=== PATIENT | male | born 1950 | race Caucasian/White ===

== ENCOUNTER 2024-06-16 18:31 | Inpatient (IN) | payer OTHER, BC ==
[2024-06-16] MEDS ORDERED: ONDANSETRON 4 MG/2 ML VIAL ONE (19:38)
[2024-06-16] MEDS ORDERED: NA CHLORIDE 0.9% 1,000 ML ONE (19:38)
[2024-06-16 19:41] LABS: Absolute Lymphocytes (CBC) 0.2 K/uL (0.7-4.9); Basophils % 0.5 % (0-1.3); Eosinophils % 0.9 % (0-4.4); Hematocrit 42.4 % (39.6-49.0); Hemoglobin 14.5 g/dL (13.6-17.9); Lymphocytes % 5.9 % (15.3-44.8); MCH 32.3 pg (27.0-35.0); MCHC 34.2 g/dL (32.0-36.0); MCV 94.4 fL (80-100); MPV 7.3 fL (7.6-11.3); Monocytes % 0.5 % (3.3-12.3); Neutrophils % 92.2 % (41.7-73.7); Nucleated Red Blood Cells % 0.1 % (0-0); Platelets 193 thou/uL (152-406); RBC Red Blood Cell Count 4.49 M/uL (4.33-5.43)
--- NOTE | 2024-06-16 19:58 | RAD REPORT ---
EXAM: Chest Single View HISTORY: COUGH COMPARISON: None. FINDINGS: LUNGS/PLEURA: Bronchial wall thickening and mild linear opacities in the lung bases. MEDIASTINUM: The mediastinal silhouette is within normal limits. CARDIAC: The cardiac silhouette is within normal limits. UPPER ABDOMEN: No significant abnormality. BONES: No acute abnormality. LINES/TUBES/OTHER: N/A IMPRESSION: Prominence of the interstitial markings in the lung bases could reflect mild infection or inflammatio n. No edema or consolidation.
[2024-06-16 20:09] LABS: Albumin 3.1 g/dL (3.4-5.0); Albumin/Globulin Ratio 0.8 (1.1-1.8); Anion Gap 11.2 mEq/L (5.0-15.0); Globulin 3.9 g/dL (2.3-3.5); Potassium 3.2 mEq/L (3.5-5.1)
[2024-06-16 20:17] LABS: Specific Gravity 1.011 (1.005-1.030); Urine Bilirubin NEGATIVE (Negative); Urine Blood Negative (Negative); Urine Clarity Clear (Clear); Urine Color Colorless (Yellow); Urine Glucose NEGATIVE (Negative); Urine Ketones NEGATIVE (Negative); Urine Microscopic Reflex YN NO UMIC; Urine Nitrite NEGATIVE (Negative); Urine Protein NEGATIVE (Negative); Urine Urobilinogen Normal (Normal)
[2024-06-16 20:32] LABS: SARS-CoV-2 Antigen CONTROL BLUE LINE VIS/BG OK; SARS-CoV-2 Antigen Rapid Res Negative (Negative)
--- NOTE | 2024-06-16 21:04 | ER ---
Nurse's Notes [facility] Name: Ryland Honeycutt Age: 73 yrs Sex: Male : 1950 Arrival Date: 06/16/2024 Time: 18:31 Bed 15 Private MD: Diagnosis: Pneumonia, unspecified organism Presentation: 06/16 18:38 Chief complaint: Patient states: about 45 min ago, all of a sudden teeth started to tm6 chatter and body started to shake. Coronavirus screen: Client denies travel out of the [place] in the last 14 days. Ebola Screen: Patient negative for fever greater than or equal to 101.5 degrees Fahrenheit, and additional compatible Ebola Virus Disease symptoms Patient denies exposure to infectious person. Patient denies travel to an Ebola-affected area in the 21 days before illness onset. No symptoms or risks identified at this time. 18:38 Method Of Arrival: Ambulatory tm6 18:38 Onset of symptoms was June 16, 2024 at 18:00. tm6 18:42 Risk Assessment: Do you want to hurt yourself or someone else? Patient reports no tm6 desire to harm self or others. 18:42 Acuity: MODESTO 3 tm6 18:44 Initial Sepsis Screen: Does the patient meet any 2 criteria? HR > 90 bpm. Does the tm6 patient have a suspected source of infection? No. Patient's initial sepsis screen is negative. Triage Assessment: 18:38 General: Appears in no apparent distress. Behavior is calm, cooperative. EENT: No signs tm6 and/or symptoms were reported regarding the EENT system. Cardiovascular: Patient's skin is warm and dry. Respiratory:. 18:40 Pain: Denies pain. Neuro: Level of Consciousness is awake, alert, obeys commands, tm6 Oriented to person, place, time, situation. Respiratory: Reports cough that is Airway is patent Respiratory effort is even, unlabored, Respiratory pattern is regular, symmetrical. GI: No signs and/or symptoms were reported involving the gastrointestinal system. Abdomen is round non-distended. GI: Reports nausea. : No signs and/or symptoms were reported regarding the genitourinary system. Derm: No signs and/or symptoms reported regarding the dermatologic system. Musculoskeletal:. Musculoskeletal: Reports body shakes. Historical: - Allergies: 18:41 No Known Allergies; tm6 - PMHx: 18:41 Hypercholesterolemia; Hypertensive disorder; Gastroesophageal reflux disease; tm6 - PSHx: 18:41 prostate removed; tm6 - Immunization history:: Flu vaccine is up to date. - Infectious Disease History:: Denies. - Social history:: Smoking status: Patient/guardian denies using tobacco, the patient reports quitting approximately 2 years ago. Screenin:00 [facility] ED Fall Risk Assessment (Adult) History of falling in the last 3 months, rg5 including since admission No falls in past 3 months (0 pts) Confusion or Disorientation No (0 pts) Intoxicated or Sedated No (0 pts) Impaired Gait No (0 pts) Mobility Assist Device Used No (0 pt) Altered Elimination No (0 pt) Score/Fall Risk Level 0 - 2 = Low Risk Oriented to surroundings, Maintained a safe environment, Hourly rounding (assess needs \T\ fall precautionary measures) done. 19:00 Abuse screen: Denies threats or abuse. Nutritional screening: No deficits noted. rg5 Tuberculosis screening: No symptoms or risk factors identified. Vital Signs: 18:39 Temp 99.2(O); tm6 18:44 BP 130 / 80; Pulse 116; Resp 20; Pulse Ox 94% on R/A; MAP 93 mmHg; Weight 99.79 kg; tm6 Height 6 ft. 0 in. ; Pain 0/10; 19:05 BP 153 / 84; Pulse 106; Resp 19; Temp 98.8(O); Pulse Ox 97% on R/A; Pain 0/10; rg5 20:00 BP 143 / 89; Pulse 106; Resp 17; Pulse Ox 95% on R/A; Pain 0/10; rg5 22:00 BP 140 / 94; Pulse 110; Resp 88; Pulse Ox 94% on R/A; rg5 23:00 BP 131 / 97; Pulse 117; Resp 18; Pulse Ox 94% on R/A; Pain 0/10; rg5 1230 00:30 BP 134 / 89; Pulse 103; Resp 18; Temp 98.3(O); Pulse Ox 95% on 3 lpm NC; rg5 06/16 18:44 Body Mass Index 29.84 (99.79 kg, 182.88 cm) tm6 18:44 Pain Scale: Adult tm6 19:05 Pain Scale: Adult rg5 20:00 Pain Scale: Adult rg5 23:00 Pain Scale: Adult rg5 ED Course: 06/16 18:34 Patient arrived in ED. im 18:42 Chasidy Meza FNP-C is [facility]. kb 18:42 Jeffy Still MD is Attending Physician. kb 18:42 Arm band placed on left wrist. tm6 18:43 Triage completed. tm6 19:00 Patient has correct armband on for positive identification. Bed in low position. Call rg5 light in reach. Side rails up X 1. Door closed. Noise minimized. Warm blanket given. 19:00 No provider procedures requiring assistance completed. rg5 19:13 Genaro Guajardo, BIBI is Primary Nurse. rg5 19:15 Inserted saline lock: 20 gauge in right antecubital area, using aseptic technique. rg5 Blood collected. Flushed with 10 mL NS. 19:44 Chest Single View XRAY In Process Unspecified. EDMS 21:04 Florentino Vela MD is Hospitalizing Provider. kb 22:26 Inserted saline lock: 22 gauge in left antecubital area, using aseptic technique. Blood af3 collected. Flushed with 10 mL NS. 22:31 EKG done, by radioisotope technician. af3 06/17 02:30 Patient admitted, IV remains in place. rg5 02:31 Provided Education on: need for admit. rg5 Administered Medications: 06/16 19:30 Drug: Ondansetron IVP 4 mg IVP once; over 2 minutes Route: IVP; Site: right antecubital;rg5 20:00 Follow up: Response: No adverse reaction rg5 19:30 Drug: NS 0.9% IV 1000 ml IV at 1 bolus Per protocol; to be given as a bolus over 60 rg5 minutes Route: IV; Rate: 1 bolus; Site: right antecubital; 20:30 Follow up: IV Status: Completed infusion; IV Intake: 1000ml rg5 22:50 Drug: Zithromax IVPB 500 mg IVPB once over 1 hrs; mix in 250 mL NS Route: IVPB; Infused rg5 Over: 1 hrs; Site: right hand; 06/17 00:00 Follow up: IV Status: Completed infusion; IV Intake: 250ml rg5 06/16 22:50 Drug: Aspirin PO 325 mg PO once Route: PO; rg5 23:00 Follow up: Response: No adverse reaction rg5 22:51 Drug: Rocephin IV 1 grams IV at calculated rate once; Given slow IV push per pharmacy rg5 instructions Route: IV; Rate: calculated rate; Site: right hand; 23:00 Follow up: IV Status: Completed infusion rg5 23:25 Drug: Potassium Chloride PO 40 mEq PO once Route: PO; rg5 06/17 00:00 Follow up: Response: No adverse reaction rg5 Medication: 02:31 VIS not applicable for this client. rg5 Intake: 06/16 20:30 IV: 1000ml; Total: 1000ml. rg5 06/17 00:00 IV: 250ml; Total: 1250ml. rg5 Outcome: 06/16 19:00 Admitted to Med/surg accompanied by nurse, via wheelchair, rg5 Condition: stable Instructed on the need for admit, 21:04 Decision to Hospitalize by Provider. kb 06/17 03:17 Patient left the ED. rg5 Signatures: Dispatcher [employer] EDMS Chasidy Meza, LIC MASONRY SUPERVISOR-Jody Melendrez Tawney RN RN tm6 Genaro Guajardo RN RN rg5 Micheline Atkins3 Corrections: (The following items were deleted from the chart) 06/16 18:40 18:38 Chief complaint: Patient states: about 45 min ago, all of a sudden teeth started tm6 to chatter and body started to shake tm6
--- NOTE | 2024-06-16 21:04 | EDPHYS ---
Physician Documentation [facility] Name: Ryland Honeycutt Age: 73 yrs Sex: Male : 1950 Arrival Date: 06/16/2024 Time: 18:31 Bed 15 Private MD: ED Physician Jeffy Still HPI: 06/16 23:16 This 73 yrs old Male presents to ER via Ambulatory with complaints of shakes. 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 States kb "my whole body started shaking and hasn't stopped. I think I'm having a seizure." Pt states he was sitting, watching a movie and having a cocktail when symptoms started. Denies any other symptoms. Pt started coughing in triage and vomited x1. Pt states he hadn't been coughing prior to triage. Historical: - Allergies: 18:41 No Known Allergies; tm6 - PMHx: 18:41 Hypercholesterolemia; Hypertensive disorder; Gastroesophageal reflux disease; tm6 - PSHx: 18:41 prostate removed; tm6 - Immunization history:: Flu vaccine is up to date. - Infectious Disease History:: Denies. - Social history:: Smoking status: Patient/guardian denies using tobacco, the patient reports quitting approximately 2 years ago. ROS: 23:16 Constitutional: As per HPI kb Exam: 22:44 Constitutional: This is a well developed, well nourished patient who is awake, alert, kb and in no acute distress. Head/Face: Normocephalic, atraumatic. ENT: Moist Mucous membranes Cardiovascular: Regular rate Respiratory: Respirations even and unlabored. No increased work of breathing. Talking in full sentences Abdomen/GI: Soft, non-tender. No distention Skin: Warm, dry with normal turgor. Normal color. MS/ Extremity: Pulses equal, no cyanosis. Neurovascular intact. Full, normal range of motion. Neuro: Awake and alert, GCS 15, oriented to person, place, time, and situation. 22:44 ECG was reviewed by the Attending Physician. Vital Signs: 18:39 Temp 99.2(O); tm6 18:44 BP 130 / 80; Pulse 116; Resp 20; Pulse Ox 94% on R/A; MAP 93 mmHg; Weight 99.79 kg; tm6 Height 6 ft. 0 in. ; Pain 0/10; 19:05 BP 153 / 84; Pulse 106; Resp 19; Temp 98.8(O); Pulse Ox 97% on R/A; Pain 0/10; rg5 20:00 BP 143 / 89; Pulse 106; Resp 17; Pulse Ox 95% on R/A; Pain 0/10; rg5 22:00 BP 140 / 94; Pulse 110; Resp 88; Pulse Ox 94% on R/A; rg5 23:00 BP 131 / 97; Pulse 117; Resp 18; Pulse Ox 94% on R/A; Pain 0/10; rg5 12 00:30 BP 134 / 89; Pulse 103; Resp 18; Temp 98.3(O); Pulse Ox 95% on 3 lpm NC; rg5 06/16 18:44 Body Mass Index 29.84 (99.79 kg, 182.88 cm) tm6 18:44 Pain Scale: Adult tm6 19:05 Pain Scale: Adult rg5 20:00 Pain Scale: Adult rg5 23:00 Pain Scale: Adult rg5 MDM: 06/16 18:42 Medical Screening Exam initiated kb 21:03 Differential diagnosis: flu, covid, uri, pneumonia. Data reviewed: vital signs, nurses kb notes. Consideration of Admission/Observation Patient was admitted/placed on observation. Escalation of care including admission/observation considered. Management of patient was discussed with the following: Hospitalist: Dr Vela accepts pt for admission. Historians other than the Patient: Spouse/Significant Other: . Counseling: I had a detailed discussion with the patient and/or guardian regarding the historical points, exam findings, and any diagnostic results supporting the discharge/admit diagnosis, lab results, radiology results, the need for further work-up and treatment in the hospital. 06/16 18:42 Order name: CBC with Diff; Complete Time: 21:37 kb 06/16 18:42 Order name: CMP; Complete Time: 20:10 kb 06/16 18:42 Order name: Lipase; Complete Time: 20:10 kb 06/16 18:42 Order name: Urinalysis w/ reflexes kb 06/16 18:42 Order name: Flu; Complete Time: 20:33 kb 06/16 18:42 Order name: SARS-COV-2 Antigen Rapid; Complete Time: 20:33 kb 06/16 20:56 Order name: Blood Culture Adult (2) kb 06/16 20:56 Order name: Lactate w/ 2H reflex if indic.; Complete Time: 23:00 kb 06/16 20:56 Order name: Protime (+inr); Complete Time: 22:44 kb 06/16 20:56 Order name: Ptt, Activated; Complete Time: 22:44 kb 06/16 21:31 Order name: CBC Smear Scan; Complete Time: 21:37 EDMS 06/17 02:51 Order name: CBC with Automated Diff EDMS 06/17 02:52 Order name: Comprehensive Metabolic Panel EDMS 06/16 18:42 Order name: Chest Single View XRAY; Complete Time: 20:01 kb 06/17 02:54 Order name: Chest Pa And Lat (2 Views) EDMS 06/16 18:42 Order name: EKG; Complete Time: 18:43 kb 06/16 18:42 Order name: IV Saline Lock; Complete Time: 19:56 kb 06/16 18:42 Order name: Labs collected and sent; Complete Time: 19:56 kb 06/16 18:42 Order name: EKG - Nurse/Tech; Complete Time: 22:31 kb 06/16 21:03 Order name: Misc. Order: pt requesting orange juice; Complete Time: 21:54 kb EC:44 Rate is 112 beats/min. Rhythm is regular. QRS [place] is Normal. [place] interval is normal at kb 158 msec. QRS interval is normal at 92 msec. QT interval is normal at 444 msec. Administered Medications: 19:30 Drug: Ondansetron IVP 4 mg IVP once; over 2 minutes Route: IVP; Site: right antecubital;rg5 20:00 Follow up: Response: No adverse reaction rg5 19:30 Drug: NS 0.9% IV 1000 ml IV at 1 bolus Per protocol; to be given as a bolus over 60 rg5 minutes Route: IV; Rate: 1 bolus; Site: right antecubital; 20:30 Follow up: IV Status: Completed infusion; IV Intake: 1000ml rg5 22:50 Drug: Zithromax IVPB 500 mg IVPB once over 1 hrs; mix in 250 mL NS Route: IVPB; Infused rg5 Over: 1 hrs; Site: right hand; 06/17 00:00 Follow up: IV Status: Completed infusion; IV Intake: 250ml rg5 06/16 22:50 Drug: Aspirin PO 325 mg PO once Route: PO; rg5 23:00 Follow up: Response: No adverse reaction rg5 22:51 Drug: Rocephin IV 1 grams IV at calculated rate once; Given slow IV push per pharmacy rg5 instructions Route: IV; Rate: calculated rate; Site: right hand; 23:00 Follow up: IV Status: Completed infusion rg5 23:25 Drug: Potassium Chloride PO 40 mEq PO once Route: PO; rg5 06/17 00:00 Follow up: Response: No adverse reaction rg5 Disposition: 07:07 Co-signature as Attending Physician, Jeffy Still MD I reviewed the patient's care rn provided by the Advanced Practice Provider and agree with the diagnosis and treatment plan. Disposition Summary: 06/16/24 21:04 Hospitalization Ordered Notes: Hospitalization Status: Observation kb Provider: Florentino Vela Location: Telemetry/MedSurg (observation) kb Condition: Stable kb Problem: new kb Symptoms: are unchanged kb Bed/Room Type: Standard Room Assignment: 215(06/17/24 01:20) [facility] Diagnosis - Pneumonia, unspecified organism kb Forms: - Medication Reconciliation Form kb - SBAR form kb - Leadership Thank You Letter kb Signatures: Dispatcher [employer] Chasidy Lopez, HOTBED TRANSFER OPERATOR-C HOTBED TRANSFER OPERATOR-Ckb Jeffy Still MD MD rn Forrester, Kelsey Maroul f Fabiola Armendariz RN RN tm6 Genaro Guajardo RN RN rg5 Corrections: (The following items were deleted from the chart) 01:20 06/16 21:04 kb f
[2024-06-16 21:31] LABS: Blood Morphology Comment NOT SEEN (NOT SEEN); Platelet Estimate ADEQ; White Blood Cell Scan OK (OK)
[2024-06-16] MEDS ORDERED: NA CHLORIDE 0.9% 250 ML ONE (22:24)
[2024-06-16] MEDS ORDERED: CEFTRIAXONE 1000 MG/VIAL ONE (22:24)
[2024-06-16] MEDS ORDERED: ASPIRIN 325 MG TAB ONE (22:24)
[2024-06-16] MEDS ORDERED: AZITHROMYCIN 500 MG INJ IVPB ONE (22:24)
[2024-06-16 22:39] LABS: PT Prothrombin Time 12.2 SECONDS (9.4-12.5); PTT, Activated Partial Thromb 24.9 SECONDS (24.3-36.9); Protime INR 1.09
[2024-06-16] MEDS ORDERED: POTASSIUM CL SA 10 MEQ TAB PO ONE (23:20)
--- NOTE | 2024-06-17 02:57 | P.HP ---
Certification for Inpatient Patient admitted to: Observation With expected LOS: <2 Midnights Practitioner: I am a practitioner with admitting privileges, knowledge of patient current condition, hospital course, and medical plan of care. Services: Services provided to patient in accordance with Admission requirements found in Title 42 Section 412.3 of the Code of Federal Regulations Patient History Date of Service: 06/17/24 Reason for admission: Possible pneumonia History of Present Illness: Patient is 73 years of age was watching a movie on TV suddenly started having rigors shivering attack denies any fever chills cough sputum or hemoptysis ended up here in the emergency room diagnosis of possible pneumonia patient is a former smoker quit 2 years ago denies any shortness of breath or chest pain Allergies No Known Allergies Allergy (Unverified 06/17/24 02:51) - Past Medical/Surgical History -: hyperlipidemia -: BPH -: GERD -: Prostatectomy - Social History Smoking Status: Former smoker Review of Systems 10-point ROS is otherwise unremarkable Physical Examination - Vital Signs Temperature: 99.2 F Blood Pressure: 130/80 Pulse: 116 Respirations: 20 Pulse Ox (%): 94 - Physical Exam General: Alert, In no apparent distress, Oriented x3, Cachectic Neck: Supple Respiratory: Clear to auscultation bilaterally, Friction rub Cardiovascular: Regular rate/rhythm, Normal S1 S2 Gastrointestinal: Normal bowel sounds, Soft and benign Musculoskeletal: No clubbing, No swelling Integumentary: No rashes, No breakdown Neurological: Normal speech, Normal strength at 5/5 x4 extr - Studies Laboratory Data (last 24 hrs) 06/16/24 06/16/24 06/16/24 22:18 19:30 19:30 WBC 3.30 L Hgb 14.5 Hct 42.4 Plt Count 193 PT 12.2 INR 1.09 APTT 24.9 Sodium 140 Potassium 3.2 L BUN 17 Creatinine 1.19 Glucose 100 Total Bilirubin 1.0 AST 28 ALT 23 Alkaline Phosphatase 76 Lipase 52 Microbiology Data (last 24 hrs): 06/16/24 19:41 Nasopharnyx Influenza Type A Antigen Screen - Final 06/16/24 19:41 Nasopharnyx Influenza Type B Antigen Screen - Final Assessment and Plan - Problems (Diagnosis) (1) Rigors Current Visit: Yes Status: Acute Plan: Patient is 73 years of age admitted with acute onset of possible rigors with shivering spells denies any pulmonary complaints chest x-ray shows some prominence of interstitial markings in the lower lobes possible pneumonia labs reviewed unremarkable white count is a bit lower than normal patient has mild hypokalemia not on any diuretics at home former smoker quit 2 years ago plan to admit to the hospital for observation will repeat chest x-ray start patient on levofloxacin cultures have been ordered currently vital signs oxygenation stable possible discharge tomorrow Discharge Plan: Home Plan to discharge in: 24 Hours - Advance Directives Does patient have a Living Will: Yes Does patient have a Durable POA for Healthcare: Yes - Code Status/Comfort Care Code Status Assessed: Yes Code Status: Full Code
[2024-06-17] MEDS ORDERED: Levofloxacin 750mg IV 750 MG/150 ML BAG IV SCH (03:00)
[2024-06-17 03:36] VITALS: BMI 29.8
[2024-06-17 06:50] LABS: Absolute Lymphocytes (CBC) 0.3 K/uL (0.7-4.9); Absolute Monocytes 0.3 K/uL (0.1-1.3); Absolute Neutrophil 11.3 K/uL (1.8-8.0); Basophils % 0.4 % (0-1.3); Eosinophils % 0.4 % (0-4.4); Hematocrit 40.3 % (39.6-49.0); Hemoglobin 13.5 g/dL (13.6-17.9); Lymphocytes % 2.4 % (15.3-44.8); MCH 31.6 pg (27.0-35.0); MCHC 33.5 g/dL (32.0-36.0); MCV 94.3 fL (80-100); MPV 7.8 fL (7.6-11.3); Monocytes % 2.5 % (3.3-12.3); Neutrophils % 94.3 % (41.7-73.7); Platelets 186 thou/uL (152-406); RBC Red Blood Cell Count 4.27 M/uL (4.33-5.43); Red Cell Distribution Width 16.2 % (12.1-15.2)
[2024-06-17 07:13] LABS: Albumin 2.8 g/dL (3.4-5.0); Albumin/Globulin Ratio 0.8 (1.1-1.8); Anion Gap 10.9 mEq/L (5.0-15.0); Bilirubin Total 0.7 mg/dL (0.2-1.0); Globulin 3.7 g/dL (2.3-3.5); Potassium 3.9 mEq/L (3.5-5.1); Protein, Total 6.5 g/dL (6.4-8.2)
--- NOTE | 2024-06-17 07:47 | RAD REPORT ---
EXAMINATION: TWO VIEW CHEST XR CLINICAL INDICATION: RO pneumonia TECHNIQUE: 2 views of the chest was performed. COMPARISON: 06/16/2024 FINDINGS: Mild linear atelectasis is present in the left lung base. Lungs otherwise clear. The heart is upper l imit of normal in size. No displaced fractures evident.
[2024-06-17] MEDS: Levofloxacin 750mg IV 750 MG/150 ML BAG IV SCH (09:05)
[2024-06-17] MEDS: ACETAMINOPHEN 325 MG TABLET PO PRN (11:01)
--- NOTE | 2024-06-17 11:09 | EKG ---
Test Date: 2024-06-16 Test Time: 22:29:27 Assistant Chief Engineer: AF MEASUREMENT RESULTS: Intervals: Rate: 112 IL: 158 QRSD: 92 QT: 326 QTc: 444 [place]: P: 59 IL: 158 QRS: 69 T: 28 INTERPRETIVE STATEMENTS: Sinus tachycardia Otherwise normal ECG No previous ECG available for comparison Electronically Signed On 06-17-24 11:08:17 AUDIO/VIDEO ENGINEER by Carlos Barakat
--- NOTE | 2024-06-17 12:40 | P.PN ---
Date of Service: 06/17/24 Patient seen and examined. Patient complaining of rigors and chills and headache. No significant fever recorded. He denies any shortness of breath He denies any chest pain or coughing. He denies any dysuria. CRP and procalcitonin significantly elevated. Plan: Broaden antibiotics-IV cefepime, vancomycin and doxycycline Follow blood cultures Trend CRP Supportive measures with antipyretics, analgesics as needed.
[2024-06-17] MEDS: VANCOMYCIN 1 GM in NA CHLORIDE 0.9% 250 ML IVPB SCH (13:00)
[2024-06-17] MEDS: VANCOMYCIN 1.75 GM in NA CHLORIDE 0.9% 500 ML IVPB SCH (13:49)
[2024-06-17] MEDS: PANTOPRAZOLE 40MG TABLET PO SCH (20:27)
[2024-06-17] MEDS: DOXYCYCLINE 100 MG in NA CHLORIDE 0.9% 100 ML IVPB SCH (20:27)
[2024-06-17] MEDS: ATORVASTATIN 80 MG TAB PO SCH (20:27)
[2024-06-17] MEDS ORDERED: HOME MED 1 EA UNK (Omeprazole [Omeprazole] 20 MG Capsule.Dr) PO SCH (21:00)
[2024-06-17] MEDS: CEFEPIME 2 GM in NA CHLORIDE 0.9% 100 ML IV SCH (21:47)
[2024-06-18 06:06] LABS: Absolute Eosinophils 0.1 K/uL (0-0.5); Absolute Lymphocytes (CBC) 0.4 K/uL (0.7-4.9); Absolute Monocytes 0.5 K/uL (0.1-1.3); Absolute Neutrophil 5.9 K/uL (1.8-8.0); Basophils % 0.4 % (0-1.3); Hematocrit 40.4 % (39.6-49.0); Hemoglobin 13.6 g/dL (13.6-17.9); Lymphocytes % 5.7 % (15.3-44.8); MCHC 33.6 g/dL (32.0-36.0); MCV 95.1 fL (80-100); Monocytes % 7.3 % (3.3-12.3); Neutrophils % 85.6 % (41.7-73.7); Nucleated Red Blood Cells % 0.1 % (0-0); Platelets 144 thou/uL (152-406); RBC Red Blood Cell Count 4.25 M/uL (4.33-5.43); Red Cell Distribution Width 16.2 % (12.1-15.2)
[2024-06-18 06:23] LABS: Anion Gap 9.7 mEq/L (5.0-15.0)
[2024-06-18 06:24] LABS: Potassium 3.7 mEq/L (3.5-5.1)
--- NOTE | 2024-06-18 08:01 | P.PN ---
Date of Service: 06/18/24 Subjective: Denies any new urinary symptoms. Reports some degree of incontinence at baseline since prostatectomy in August reports multiple episodes of bloody stool ~1 week ago - now resolved prior to admission; Denies hematuria. 100.3 temp yesterday afternoon denies any pains, no constipation. ROS: 10 point ROS as noted above, otherwise negative Physical Exam: GEN: Alert, NAD CV: Regular rate and rhythm, no edema Pulm: Nonlabored respirations on room air, clear bilaterally ABD: soft, nontender, nondistended Neuro: Normal speech, normal affect Problem List: Rigors Gram negative bacteremia; unclear source Hyperlipidemia BPH s/p prostatectomy GERD Rigors Gram negative bacteremia; unclear source on admission, presented after episode of chills, uncontrollable body shaking. Was sitting down watching a movie at the time. Denies any new urinary symptoms. Reports some incontinence at baseline since prostatectomy in August reports multiple episodes of bloody stool ~1 week ago; Denies hematuria. CXR (06/17): Mild linear atelectasis is present in the left lung base. Lungs otherwise clear. CRP/procal significantly elevated. Trend CRP, procal UA unremarkable. Blood cx (06/16): GNR in 4/ bottles Continue empiric cefepime / vanc / doxy (06/17-) 100.3 temp yesterday; leukocytosis resolved 06/[address] abdomen with contrast ordered to further evaluate. at risk for UTI, which is common cause of GNR bacteremia Hyperlipidemia BPH s/p prostatectomy confirm home meds, restart as appropriate GERD Protonix BID Code: Full Dispo: Home Pending cultures, afebrile > 24 hours will likely need at least 1 week IV antibiotic, and [place] is from [place] / [place] Time Spent Managing Pts Care (In Minutes): 55
[2024-06-18 09:14] LABS: Blood Morphology Comment NOT SEEN (NOT SEEN); Platelet Estimate ADEQ; White Blood Cell Scan OK (OK)
--- NOTE | 2024-06-18 10:24 | RAD REPORT ---
EXAMINATION: CT ABDOMEN AND PELVIS WITH CONTRAST CLINICAL INDICATION: Abdominal pain TECHNIQUE: CT abdomen and pelvis was performed, after the administration of 100 cc Isovue-300.. Sagit cassandra and coronal reconstructions were obtained. One or more of the following dose reduction techniques were used: Automated exposure control, adjustment of the mA and kV according to patient si ze, and iterative reconstruction. Unless otherwise specified, incidental findings do not require dedicated imaging follow-up. [id number]. Oral contrast was not given which limits evaluation of bowel and appendix. COMPARISON: .None FINDINGS: Several hepatic cysts. The largest 2 centimeters. Small hiatal hernia. Splenic granuloma. The pancreas and adrenal glands unremarkable. Bilateral renal cysts. Normal appendix. Prostatectomy. Mild bladder wall thickening. Small inguinal hernias containing fat. No evidence of diverticulitis. : IMPRESSION: No acute abnormality displayed
--- NOTE | 2024-06-18 19:14 | CON ---
History Of Present Illness: This is a 73-year-old male I was consulted for gram-negative maria alejandra bactere tony. The patient complains of shivering, rigors, and chills with fever, slight cough, coming into [facility] emergency room for further evaluation. The patient is a former smoker and was admitted for possibl e pneumonia. The patient denies any headache, nausea, vomiting, chest pain, abdominal pain, constipa tion, diarrhea, shortness of breath. He had his prostate removed in August and since then he has been incontinent. The patient had some bloody stools, challenged with hemorrhoids. He has been followed by urologist at [place] state. The patient denies any other problems. Feeling much better since h e has been on antibiotic. Currently, on cefepime, vancomycin, and doxycycline. Past Medical History: Hyperlipidemia, benign prostatic hypertrophy, prostatectomy in August of 2023, gastroesophageal reflux disease. Social History: Tobacco positive, alcohol negative. Family History: Noncontributory. Medications: Cefepime, vancomycin, and doxycycline. See MARs for other medications. Allergies: NO KNOWN DRUG ALLERGIES. Review of Systems: A 10-point review was performed. Physical Examination: General: This is a 73-year-old male, sitting in bed, not in any acute cardiopulmonary distress. Vital Signs: Temperature 97.5, pulse 82, respiration 18, blood pressure 90/82. HEENT: Unremarkable. Neck: Supple. Lungs: Basal crackles. Heart: S1, S2. Regular. Abdomen: Soft, nontender. Bowel sounds present. Extremities: No edema. Laboratory Data: Shows WBC 6.9, down from 12; hemoglobin 13.6; platelets are 144. Chemistry shows B UN of 14, creatinine of 1, albumin level 2.8. Procalcitonin is 37.4, down from 52.8. Assessment And Plan: Bacteremia secondary to gram-negative maria alejandra, sensitivity and specificity pending, most likely secondary to either urinary tract or GI system compromise. Recommend to continue cefepi me for 14 days. Vancomycin and doxycycline can be stopped. Leukocytosis improved. Thrombocytopenia . Moderate protein-calorie malnourishment. History of prostatectomy, hemorrhoids. Fever has subsid ed. Continue antibiotic and supportive care for 14 days. We will follow the patient as needed. Can be switched to oral once the sensitivity and specificity is identified. We will follow the patient as needed. Thank you for consult. NF/MODL Voice ID: [id number] Report ID: [id number]
[2024-06-19 05:19] LABS: Absolute Eosinophils 0.2 K/uL (0-0.5); Absolute Lymphocytes (CBC) 0.6 K/uL (0.7-4.9); Absolute Monocytes 0.9 K/uL (0.1-1.3); Absolute Neutrophil 2.7 K/uL (1.8-8.0); Basophils % 0.7 % (0-1.3); Eosinophils % 5.1 % (0-4.4); Hematocrit 39.5 % (39.6-49.0); Hemoglobin 13.3 g/dL (13.6-17.9); Lymphocytes % 13.3 % (15.3-44.8); MCH 31.8 pg (27.0-35.0); MCHC 33.6 g/dL (32.0-36.0); MCV 94.7 fL (80-100); MPV 7.8 fL (7.6-11.3); Monocytes % 19.5 % (3.3-12.3); Neutrophils % 61.4 % (41.7-73.7); Nucleated Red Blood Cells % 0.2 % (0-0); Platelets 146 thou/uL (152-406); RBC Red Blood Cell Count 4.17 M/uL (4.33-5.43); Red Cell Distribution Width 16.3 % (12.1-15.2)
[2024-06-19 06:18] LABS: Albumin 2.8 g/dL (3.4-5.0); Albumin/Globulin Ratio 0.8 (1.1-1.8); Anion Gap 8.7 mEq/L (5.0-15.0); Bilirubin Total 0.5 mg/dL (0.2-1.0); C-Reactive Protein 64.9 mg/L (<3.00); Globulin 3.7 g/dL (2.3-3.5); Magnesium 2.1 mg/dL (1.6-2.4); Potassium 3.7 mEq/L (3.5-5.1); Protein, Total 6.5 g/dL (6.4-8.2)
[2024-06-19 07:28] VITALS: O2SAT 96
[2024-06-19 08:51] LABS: Anisocytosis 1+; Atypical Lymphocytes 4 %; Band Neutrophils 2 % (0-1); Blood Morphology Comment NOTED (NOT SEEN); Differential Total Cells Count 100; Eosinophils 5 % (0-3); Lymphocytes 12 % (15-42); Monocytes 14 % (0-10); Platelet Estimate ADEQ; Platelets Clumped FEW; Segmented Neutrophils 62 % (40-80)
--- NOTE | 2024-06-19 11:35 | P.PN ---
Date of Service: 06/19/24 Subjective: ambulating around the floor without issues denies any new problems afebrile ROS: 10 point ROS as noted above, otherwise negative Physical Exam: GEN: Alert, NAD CV: Regular rate and rhythm, no edema Pulm: Nonlabored respirations on room air, clear bilaterally ABD: soft, nontender, nondistended Neuro: Normal speech, normal affect Problem List: Klebsiella Pneumoniae bacteremia; unclear source Hyperlipidemia BPH s/p prostatectomy GERD Klebsiella Pneumoniae bacteremia; unclear source on admission, presented after episode of chills, uncontrollable body shaking. Was sitting down watching a movie at the time. Denies any new urinary symptoms. Reports some incontinence at baseline since prostatectomy in August reports multiple episodes of bloody stool ~1 week ago; Denies hematuria. CXR (06/17): Mild linear atelectasis is present in the left lung base. Lungs otherwise clear. Blood cx (06/16): Klebsiella Pneumoniae IV cefepime (06/17-06/19) transitioned to IV levaquin (06/19) afebrile; leukocytosis resolved 06/18 Possible dc next 24 hours with oral abx ID consulted CT abdomen noted some mild bladder wall thickening, several hepatic cysts (largest 2cm), otherwise negative Unclear exact source. Possibly secondary to UTI vs gut translocation CRP/procal improving Hyperlipidemia BPH s/p prostatectomy confirm home meds, restart as appropriate GERD Protonix BID Code: Full Dispo: Home ~1 day pending 1 more day of IV abx Time Spent Managing Pts Care (In Minutes): 55
[2024-06-19] MEDS: Levofloxacin 750mg IV 750 MG/150 ML BAG IV SCH (12:14)
[2024-06-20 05:50] LABS: Absolute Eosinophils 0.3 K/uL (0-0.5); Absolute Lymphocytes (CBC) 0.7 K/uL (0.7-4.9); Absolute Monocytes 0.8 K/uL (0.1-1.3); Absolute Neutrophil 2.9 K/uL (1.8-8.0); Basophils % 0.5 % (0-1.3); Eosinophils % 5.5 % (0-4.4); Hematocrit 40.9 % (39.6-49.0); Hemoglobin 13.8 g/dL (13.6-17.9); Lymphocytes % 15.2 % (15.3-44.8); MCH 31.6 pg (27.0-35.0); MCHC 33.7 g/dL (32.0-36.0); MCV 93.8 fL (80-100); MPV 7.8 fL (7.6-11.3); Monocytes % 17.2 % (3.3-12.3); Neutrophils % 61.6 % (41.7-73.7); Nucleated Red Blood Cells % 0.2 % (0-0); Platelets 195 thou/uL (152-406); RBC Red Blood Cell Count 4.36 M/uL (4.33-5.43)
[2024-06-20 06:07] LABS: Anion Gap 7.5 mEq/L (5.0-15.0); C-Reactive Protein 26.1 mg/L (<3.00); Magnesium 2.2 mg/dL (1.6-2.4); Potassium 3.5 mEq/L (3.5-5.1)
--- NOTE | 2024-06-20 08:34 | P.DS ---
Admission Date: 06/18/24 Discharge Date: 06/20/24 Disposition: ROUTINE DISCHARGE Discharge Condition: GOOD Reason for Admission: Possible pneumonia Consultations: ID - Dr. Muse Brief History of Present Illness: Patient is 73 years of age was watching a movie on TV suddenly started having rigors shivering attack denies any fever chills cough sputum or hemoptysis ended up here in the emergency room diagnosis of possible pneumonia patient is a former smoker quit 2 years ago denies any shortness of breath or chest pain Hospital Course: Problem List: Klebsiella Pneumoniae bacteremia; unclear source Hyperlipidemia BPH s/p prostatectomy GERD Physician discharge instructions: Patient presented to ED after an episode of chills and rigors, found to be secondary to Klebsiella Pneumoniae bacteremia. Urine sample obtained in ED did not have any leuk esterase/nitrite/bacteruria/WBCs. Unclear exact source however suspect secondary to UTI given bladder wall thickening on CT scan and risk factors. Second possibly could be bacterial translocation -he reported 1-2 days of bloody bowel movements that he thought were secondary to hemorrhoids and resolved prior to admission. CT abdomen noted some mild bladder wall thickening, otherwise negative for any acute abnormalities. It did note benign appearing liver cysts which patient reported previously being told about them. Chest xray was negative for any acute findings. Blood cultures grew Klebsiella Pneumoniae in 4/4 bottles, only resistant to ampicillin. ID was consulted and recommended patient complete 2 weeks of antibiotics. He received empiric antibiotics initially, cefepime/vanc, and doxy briefly since unknown source. Once cultures resulted, he was switched to IV levaquin on 06/19 and continued to improve. SIRS resolved for > 48hrs. Patient was feeling better, afebrile without leukocytosis for > 48 hours and deemed stable for discharge. Discussed with ID and will discharge home with 11 more days of levaquin to complete a total of 14 days. Medications: levaquin 750mg PO daily for 11 more days. Follow up: PCP 3-5 days Please call to schedule / confirm appointments given recent prostatectomy earlier in the year, incontinence, and this infection, recommended close follow up with his Urologist as well. On admission, he had a mild leukocytosis of 12 and Cr was only mildly elevated at 1.19, with rest of blood work rather unremarkable. Inflammatory markers (CRP and procal were obtained the following day on 06/17) CRP: 76 on admission, peaked at 117, and down to 26 on day of discharge. Procalcitonin: 52 on admission, and trended down daily to 16 on day of discharge. CT abdomen/pelvis (06/18): Mild bladder wall thickening. Prostatectomy. Several hepatic cysts (largest 2cm). Small hiatal hernia. Small inguinal hernias containing fat. Bilateral renal cysts. Physical Exam: GEN: Alert, NAD CV: Regular rate and rhythm, no edema Pulm: Nonlabored respirations on room air, clear bilaterally ABD: soft, nontender, nondistended Neuro: Normal speech, normal affect Vital Signs/Physical Exam: Temp Pulse Resp BP Pulse Ox 98.3 F 75 17 110/66 96 06/20/24 04:00 06/20/24 04:00 06/20/24 04:00 06/20/24 04:00 06/20/24 04:00 Laboratory Data at Discharge: WBC 4.60 thou/uL (4.3-10.9) 06/20/24 05:25 Hgb 13.8 g/dL (13.6-17.9) 06/20/24 05:25 Hct 40.9 % (39.6-49.0) 06/20/24 05:25 Plt Count 195 thou/uL (152-406) D 06/20/24 05:25 PT 12.2 SECONDS (9.4-12.5) 06/16/24 22:18 INR 1.09 06/16/24 22:18 APTT 24.9 SECONDS (24.3-36.9) 06/16/24 22:18 Sodium 141 mEq/L (136-145) 06/20/24 05:25 Potassium 3.5 mEq/L (3.5-5.1) 06/20/24 05:25 BUN 14 mg/dL (7-18) 06/20/24 05:25 Creatinine 0.92 mg/dL (0.70-1.30) 06/20/24 05:25 Glucose 107 mg/dL (74-106) H 06/20/24 05:25 Magnesium 2.2 mg/dL (1.6-2.4) 06/20/24 05:25 Total Bilirubin 0.5 mg/dL (0.2-1.0) 06/19/24 04:59 AST 20 U/L (15-37) 06/19/24 04:59 ALT 19 U/L (16-61) 06/19/24 04:59 Alkaline Phosphatase 57 U/L (45-117) 06/19/24 04:59 Lipase 52 U/L (13-75) 06/16/24 19:30 Home Medications: Amlodipine Besylate 5 mg PO DAILY 06/17/24 Atorvastatin Calcium [Lipitor] 1 mg PO DAILY 06/17/24 Omeprazole 20 mg PO BID 06/17/24 tadalafiL [Cialis] 5 mg PO DAILY 06/17/24 levoFLOXacin [Levaquin] 750 mg PO DAILY 11 Days #11 tab 06/20/24 New Medications: levoFLOXacin [Levaquin] 750 mg PO DAILY 11 Days #11 tab Physician Discharge Instructions: Physician discharge instructions: Patient presented to ED after an episode of chills and rigors, found to be secondary to Klebsiella Pneumoniae bacteremia. Urine sample obtained in ED did not have any leuk esterase/nitrite/bacteruria/WBCs. Unclear exact source however suspect secondary to UTI given bladder wall thickening on CT scan and risk factors. Second possibly could be bacterial translocation -he reported 1-2 days of bloody bowel movements that he thought were secondary to hemorrhoids and resolved prior to admission. CT abdomen noted some mild bladder wall thickening, otherwise negative for any acute abnormalities. It did note benign appearing liver cysts which patient reported previously being told about them. Chest xray was negative for any acute findings. Blood cultures grew Klebsiella Pneumoniae in 4/4 bottles, only resistant to ampicillin. ID was consulted and recommended patient complete 2 weeks of antibiotics. He received empiric antibiotics initially, cefepime/vanc, and doxy briefly since unknown source. Once cultures resulted, he was switched to IV levaquin on 06/19 and continued to improve. SIRS resolved for > 48hrs. Patient was feeling better, afebrile without leukocytosis for > 48 hours and deemed stable for discharge. Discussed with ID and will discharge home with 11 more days of levaquin to complete a total of 14 days. Patient is to complete 2 weeks of oral levaquin on discharge. Medications: levaquin 750mg PO daily. Follow up: PCP 3-5 days Please call to schedule / confirm appointments given recent prostatectomy earlier in the year, incontinence, and this infection, recommended close follow up with his Urologist as well. On admission, he had a mild leukocytosis of 12 and Cr was only mildly elevated at 1.19, with rest of blood work rather unremarkable. Inflammatory markers (CRP and procal were obtained the following day on 06/17) CRP: 76 on admission, peaked at 117, and down to 26 on day of discharge. Procalcitonin: 52 on admission, and trended down daily to 16 on day of discharge. CT abdomen/pelvis (06/18): Mild bladder wall thickening. Prostatectomy. Several hepatic cysts (largest 2cm). Small hiatal hernia. Small inguinal hernias containing fat. Bilateral renal cysts. Followup: NONE,NONE [Primary Care Provider] - Time spent managing pt's care (in minutes): 45
[2024-06-20 08:56] VITALS: BP 118/84; TEMP 98.4
[2024-06-20] MEDS: AMLODIPINE 5 MG TAB PO SCH (09:03)
== END 2024-06-20 09:36 | disposition home or self-care (01) | DRG 872 ==
LOC: ER 18:31 → 2ND 06-17 02:47 → OBSVTOIN 06-18 09:31
PROVIDERS: ADMIT Internal Medicine Sleep Medicine; ATTEND Hospitalist
DX: A41.59 Other Gram-negative sepsis (principal); R64 Cachexia; E44.0 Moderate protein-calorie malnutrition; N39.0 Urinary tract infection, site not specified; J98.11 Atelectasis; Z16.11 Resistance to penicillins; E87.6 Hypokalemia; E78.00 Pure hypercholesterolemia, unspecified; D69.6 Thrombocytopenia, unspecified; N28.1 Cyst of kidney, acquired; K76.89 Other specified diseases of liver; I10 Essential (primary) hypertension; K44.9 Diaphragmatic hernia without obstruction or gangrene; K21.9 Gastro-esophageal reflux disease without esophagitis; Z11.52 Encounter for screening for COVID-19; Z68.29 Body mass index [BMI] 29.0-29.9, adult; Z90.79 Acquired absence of other genital organ(s); Z87.891 Personal history of nicotine dependence
CPT/HCPCS: 36415; 71045; 71046; 74177; 80048; 80053; 80202; 81003; 83605; 83690; 83735; 84145; 85025; 85610; 85730; 86140; 87040; 87077; 87186; 87205; 87804; 87811; 93005; 99285; G0378; J0692; J0696; J2405; J7030; J7040; J7050; Q9967